=== PATIENT | female | born 1980 | race Caucasian/White ===

== ENCOUNTER 2018-02-23 00:33 | Emergency (ER) | payer BC, OTHER ==
[2018-02-23 00:44] VITALS: BP 133/76
--- NOTE | 2018-02-23 01:04 | EDM.PDOC ---
ED HPI GENERAL MEDICAL PROBLEM - General Chief Complaint: Chest Pain Stated Complaint: CHEST PAIN Time Seen by Provider: 02/23/18 00:46 Source of Information: Reports: Patient History Limitations: Reports: No Limitations - History of Present Illness INITIAL COMMENTS - FREE TEXT/NARRATIVE: The patient states that she felt a strong premature heartbeat around 23:00. Her heart then seemed to beat strongly, although not fast. She went to bed, felt more skipped beats and a pounding heartbeat, then her heart seemed to go fast. It resolved en route to the ED. The patient states that she has had similar symptoms countless times in the past. She has a history of WPW, status post ablation in 2009 and 2 pulmonary vein antrum isolations (ablations) 12/14/2012, resulting in a RBBB and LPFB. The patient states that she was previously on flecainide, but did not tolerate it. She is not currently on any medication, not even a beta padmaja. It is unclear why she came to the ED this time, since she admits that her symptoms were no different tonight than they usually are, however, she states that she got scared. Here in the ED, the patient's oxygen saturation is noted to be 100% on room air. The patient's PCP is Mary Burk. Chest Pain Score (Numeric/FACES): 4 - Related Data Allergies Allergy/AdvReac Type Severity Reaction Status Date / Time cefaclor [From Ceclor] Allergy Hives Verified 02/23/18 00:40 codeine Allergy Hives Verified 02/23/18 00:40 doxycycline Allergy Hives Verified 02/23/18 00:40 latex Allergy Hives Verified 02/23/18 00:40 Sulfa (Sulfonamide Allergy Hives Verified 02/23/18 00:40 Antibiotics) Home Meds: Home Meds . [No Known Home Meds] 05/12/16 [History] Past Medical History Cardiovascular History: Reports: Arrhythmia (WPW, S/P ablation 2009) Endocrine/Metabolic History: Reports: Obesity/BMI 30+ - Past Surgical History HEENT Surgical History: Reports: Oral Surgery (1 wisdom tooth extracted) Cardiovascular Surgical History: Reports: Cardiac Ablation (For WPW 2009, then 2 pulmonary vein antrum isolations 12/14/2012) Female Surgical History: Reports: Tubal Ligation Social & Family History - Family History Family Medical History: Noncontributory - Tobacco Use Smoking Status *Q: Former Smoker Years of Tobacco use: 14 Packs/Tins Daily: 1 Month/Year Tobacco Last Used: Quit September 2013 - Caffeine Use Caffeine Use: Reports: None - Alcohol Use Alcohol Use History: No - Recreational Drug Use Recreational Drug Use: No - Living Situation & Occupation Living situation: Reports: , with Spouse, with Family (2 kids) 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 ED EXAM, GENERAL - Physical Exam Exam: See Below Exam Limited By: No Limitations General Appearance: Alert, WD/WN, Anxious Eye Exam: Bilateral Eye: EOMI, Normal Inspection Ears: Normal External Exam, Hearing Grossly Normal Nose: Normal Inspection, No Blood Throat/Mouth: Normal Inspection, Normal Lips, Normal Voice, No Airway Compromise Head: Atraumatic, Normocephalic Neck: Normal Inspection, Full Range of Motion Respiratory/Chest: No Respiratory Distress, Lungs Clear, Normal Breath Sounds, No Accessory Muscle Use Cardiovascular: Normal Peripheral Pulses, Regular Rate, Rhythm, No Edema, No Gallop, No JVD, No Murmur, No Rub Peripheral Pulses: 4+: Radial (L), Radial (R) GI/Abdominal: Normal Bowel Sounds, Soft, Non-Tender, No Organomegaly, No Distention, No Abnormal Bruit, No Mass, Other (Obese) (Female) Exam: Deferred Rectal (Female) Exam: Deferred Back Exam: Normal Inspection, Full Range of Motion, NT Extremities: Normal Inspection, Normal Range of Motion, No Pedal Edema, Normal Capillary Refill Neurological: Alert, Oriented, Normal Cognition, No Motor/Sensory Deficits Psychiatric: Anxious Skin Exam: Warm, Dry, Intact, Normal Color, No Rash EKG INTERPRETATION EKG Date: 02/23/18 Time: 00:41 Rhythm: NSR Rate (Beats/Min): 97 [place]: RAD-Right [place] Deviation P-Wave: Present QRS: Other (RBBB + LPFB) ST-T: Normal QT: Prolonged (QTc 482 ms) Comparison: No Change (05/12/2016) Course - Vital Signs Last Recorded V/S: Last Vital Signs Temp 36.9 C 02/23/18 00:40 Pulse 99 02/23/18 00:40 Resp 18 02/23/18 00:40 BP 133/76 02/23/18 00:40 Pulse Ox 100 02/23/18 00:40 - Orders/Labs/Meds Orders: Active Orders 24 hr Category Date Time Status EKG Documentation Completion [RC] STAT Care 02/23/18 00:47 Active Labs: Laboratory Tests 02/23/18 Range/Units 01:15 Sodium 138 (136-145) mEq/L Potassium 3.4 L (3.5-5.1) mEq/L Chloride 106 (98-107) mEq/L Carbon Dioxide 22 (21-32) mEq/L Anion Gap 13.4 (5-15) BUN 13 (7-18) mg/dL Creatinine 0.7 (0.55-1.02) mg/dL Est Cr Clr Drug Dosing 91.91 mL/min Estimated GFR (MDRD) > 60 (>60) mL/min BUN/Creatinine Ratio 18.6 H (14-18) Glucose 130 H (74-106) mg/dL Calcium 8.5 (8.5-10.1) mg/dL Magnesium 1.8 (1.8-2.4) mg/dl - Re-Assessments/Exams Free Text/Narrative Re-Assessment/Exam: 02/23/18 01:02 The patient presents with palpitations, feeling a strong premature heartbeat earlier tonight, followed by strong pounding heart beats that were not fast, followed by rapid palpitations. Here in the ED, her symptoms have resolved and her ECG shows a normal sinus rhythm. 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 I've ordered a BMP and magnesium level. If all are in order, the patient may safely be discharged home. It is also noted that the patient's oxygen saturation is 100%. The patient appears to be very anxious, and seems preoccupied with her heart, apparently believing that these palpitations represent something ominous. It is likely that anxiety may be playing a role in the patient's symptoms. 02/23/18 02:02 Test results discussed with the patient. The patient's potassium is slightly low at 3.4 - I'm recommending only that she consumed foods like tomatoes that are high in potassium. Her blood sugars also found to be mildly elevated 130; this may represent early diabetes or prediabetes. I'm recommending that she follow-up with her PCP, Mary Burk, for further evaluation. Departure - Departure Time of Disposition: 02:02 Disposition: Home, Self-Care 01 Condition: Good Clinical Impression: Palpitations Referrals: Mary Burk, [facility] [Ordering Only Provider] - Forms: ED Department Discharge Additional Instructions: You were seen in the emergency room for the sensation of a strong and rapid heartbeat. Workup in the ER included blood work and an ECG. Your potassium level was found to be slightly low at 3.5. We recommend that you consume foods high in potassium, such as tomatoes. Your blood sugar was found to be mildly elevated 130. You may have a condition called prediabetes, or, possibly, diabetes. Please follow-up with your PCP, Mary Burk, for further evaluation. The remainder of your workup, including her ECG, was unremarkable. Your ECG is unchanged from 05/12/2016. If any other problems, please do not hesitate to return to the ER. - My Orders Last 24 Hours: My Active Orders 02/23/18 00:47 EKG Documentation Completion [RC] STAT - Assessment/Plan Last 24 Hours: My Active Orders 02/23/18 00:47 EKG Documentation Completion [RC] STAT
== END 2018-02-23 02:14 | disposition home or self-care (01) ==
LOC: JD.ED 00:33
DX: R00.2 Palpitations (principal); Z87.891 Personal history of nicotine dependence; Z88.1 Allergy status to other antibiotic agents; Z91.040 Latex allergy status; Z88.2 Allergy status to sulfonamides; Z88.5 Allergy status to narcotic agent
CPT/HCPCS: 36415; 80048; 83735; 93005; 93010; 99284-25; 99285-25

== ENCOUNTER 2025-01-20 22:45 | Emergency (ER) | payer BC, OTHER ==
[2025-01-20 22:53] VITALS: BP 149/88; PULSE 82
== END 2025-01-21 00:20 | disposition left against medical advice (07) ==
LOC: JD.ED 22:45
DX: Z53.21 Procedure and treatment not carried out due to patient leaving prior to being seen by health care provider (principal)